=== PATIENT | female | born 1970 | race Caucasian/White ===

== ENCOUNTER 2016-08-08 21:53 | Emergency (ER) | payer BC ==
[2016-08-08 22:29] VITALS: BP 137/95; PULSE 101; RESP 18; TEMP 99.1
--- NOTE | 2016-08-08 22:39 | ED ---
Skin/Abscess/FB HPI - General Chief complaint: Skin/Abscess/Foreign Body Stated complaint: abscess/back of thigh Time Seen by Provider: 08/08/16 22:37 Source: patient, RN notes reviewed, old records reviewed Mode of arrival: ambulatory Limitations: no limitations - History of Present Illness Initial comments: Patient is a 46-year-old female with a chief complaint of an abscess over the back of her left thigh. Patient reports that she noticed it started on . Patient states that he she's had multiple abscesses within the past few months and they usually treated with Keflex. She denies a history of resistant antibiotics. Patient reports that she's had some nausea today and she 's felt feverish. She denies any other symptoms at this time. Patient reports that she is unable to remain hydrated. She denies any vomiting. Patient reports that over the past day she's been doing warm soaks. Patient denies any significant past medical history including diabetes. - Related Data Home Medications Medication Instructions Recorded Confirmed Escitalopram [Lexapro] 20 mg PO DAILY 11/25/14 08/08/16 Levothyroxine Sodium [Synthroid] 137 mcg PO DAILY 11/25/14 08/08/16 Topiramate [Topamax] 100 mg PO DAILY 11/25/14 08/08/16 ARIPiprazole [Abilify] 2 mg PO DAILY 08/08/16 08/08/16 Previous Rx's Medication Instructions Recorded HYDROcodone/APAP 10-325MG [[place] 1 tab PO Q6H PRN #20 tab 08/08/16 10-325] Sulfamethox-Tmp 800-160Mg [Bactrim 1 tab PO Q12HR #20 tab 08/08/16 DS 800-160 mg] Allergies Allergy/AdvReac Type Severity Reaction Status Date / Time erythromycin base Allergy Nausea & Verified 08/08/16 22:29 Vomiting Review of Systems ROS Statement: Those systems with pertinent positive or pertinent negative responses have been documented in the HPI. ROS Other: All systems not noted in ROS Statement are negative. Past Medical History Past Medical History: Neurologic Disorder, Thyroid Disorder Additional Past Medical History / Comment(s): Multiple Sclerosis History of Any Multi-Drug Resistant Organisms: None Reported Additional Past Surgical History / Comment(s): D and C Past Psychological History: Depression Smoking Status: Never smoker Past Alcohol Use History: Occasional Past Drug Use History: None Reported General Exam - General Exam Comments Initial Comments: Patient is a well-appearing 46-year-old female. She is on appear to be in any acute distress. Limitations: no limitations General appearance: alert, in no apparent distress Head exam: Present: atraumatic, normocephalic, normal inspection Eye exam: Present: normal appearance, PERRL, EOMI. Absent: scleral icterus, conjunctival injection, periorbital swelling ENT exam: Present: normal exam, mucous membranes moist Neck exam: Present: normal inspection. Absent: tenderness, meningismus, lymphadenopathy Respiratory exam: Present: normal lung sounds bilaterally. Absent: respiratory distress, wheezes, rales, rhonchi, stridor Cardiovascular Exam: Present: regular rate, normal rhythm, normal heart sounds. Absent: systolic murmur, diastolic murmur, rubs, gallop, clicks GI/Abdominal exam: Present: soft, normal bowel sounds. Absent: distended, tenderness, guarding, rebound, rigid Extremities exam: Present: normal inspection, full ROM, normal capillary refill. Absent: tenderness, pedal edema, joint swelling, calf tenderness Back exam: Present: normal inspection Neurological exam: Present: alert, oriented X3, CN II-XII intact Psychiatric exam: Present: normal affect, normal mood Skin exam: Present: warm, dry, intact, normal color, other (10 cm x 15 cm area of erythema on the skin. There is a evidence of an abscess that is deep and fluctuant measuring approximately 5 cm x 4 cm.). Absent: rash Course Vital Signs 08/08/16 22:25 Temperature 99.1 F Pulse Rate 101 H Respiratory 18 Rate Blood Pressure 137/95 O2 Sat by Pulse 97 Oximetry Procedures - Incision & Drainage Site: lower extremity (left posterior upper thigh) Size (cm): 5 Anesthetic Used: benzocaine 0.25% Amount (mLs): 10 I&D Cleaning Method: Iodine Sterile Field Used?: Yes Scalpel Used: #11 I&D Drainage Obtained: Pus, Blood Packing: Iodoform Culture Obtained?: Yes Patient Tolerated Procedure: well Medical Decision Making - Medical Decision Making Patient is a 46-year-old female with foreign days of an abscess over her left thigh. She reports that she's felt somewhat chilled today. She denies any other associated symptoms. Patient reports that she's had a history of abscess that are usually treated with Keflex. Patient tolerated the I&D well and a culture was obtained. Patient was given 1 g of Rocephin IM. Patient also will be discharged at this prescription for Bactrim and pain medications. Patient was packed with iodoform. Patient was discharged. Patient did request a work note and I went to give the patient a work note upon seeing the patient in the waiting room she was shivering and stated she felt chilled. At that point I decided to bring the patient back if she had some shaking chills. And Dr. Small come see the patient has a possible reaction to Rocephin. Patient at that point was given her Tylenol 3 for the fever and also 40 mg of Pepcid and 50 PO Benadryl. Patient does not have an IV access. Patient was given a warm blanket and instructed to take deep breaths. Patient will be monitored for the next 15-20 minutes to ensure that she started to feel better. Patient was reevaluated and given crackers and jensen idalia. Patient reports that she feels much better at this time. She states that she wants to go home. Patient was advised that she do should have her pick her up to drive her home. Patient did refuse that stated that she wanted to drive herself. Vitals obtained at that time blood pressure was 125/70, temperature was 99.2. Pulse ox is 99% on room air. Heart rate was 100. Patient left at this time. Disposition Clinical Impression: Abscess of left thigh Disposition: HOME SELF-CARE Condition: Good Instructions: Abscess Incision and Drainage (ED) Additional Instructions: Patient instructed to completely entire antibiotic prescription. Take pain medications as directed. Also follow-up with primary care physician or return to the if any worsening signs or symptoms occur. Patient advised to continue to do warm baths and remove packing in 48 hours. Prescriptions: HYDROcodone/APAP 10-325MG [[place] 10-325] 1 tab PO Q6H PRN #20 tab PRN Reason: Pain Sulfamethox-Tmp 800-160Mg [Bactrim DS 800-160 mg] 1 tab PO Q12HR #20 tab Referrals: Edna Olivia MD [Primary Care Provider] - 1-2 days Time of Disposition: 00:14
[2016-08-08] MEDS ORDERED: cefTRIAXone 1,000 MG VIAL (IM USE) IM STA (22:57)
[2016-08-08] MEDS ORDERED: SULFAMETH-TMP DS STARTER PACK 2 TAB BTL PO STA (22:57)
[2016-08-08] MEDS ORDERED: ACET/COD 300 MG/30 MG STARTER PACK 6 TAB BTL PO STA (23:12)
[2016-08-08] MEDS ORDERED: ACETAMINOPHEN TAB 500 MG TAB PO STA (23:29)
[2016-08-08] MEDS ORDERED: FAMOTIDINE 20 MG TAB PO STA (23:36)
[2016-08-08] MEDS ORDERED: diphenhydrAMINE 50 MG CAP PO STA (23:36)
== END 2016-08-09 00:10 | disposition home or self-care (01) ==
LOC: EC 21:53
DX: L02.416 Cutaneous abscess of left lower limb (principal); R50.9 Fever, unspecified; E07.9 Disorder of thyroid, unspecified; G35 Multiple sclerosis; F32.9 Major depressive disorder, single episode, unspecified; Z88.1 Allergy status to other antibiotic agents; Z79.899 Other long term (current) drug therapy
CPT/HCPCS: 87070; 87205; 99283; 96372; 10061; J0696; 87077; 87186

== ENCOUNTER → 2017-10-22 | Outpatient (CLI) | payer OTHER ==
--- NOTE | 2017-10-22 08:52 | MR ---
MRI CERVICAL AND THORACIC SPINES: CLINICAL HISTORY: Neck and back pain. TECHNIQUE: Multiplanar, multisequence imaging of the cervical spine is performed without and with IV contrast, cc of gadolinium was given intravenously. COMPARISON: Previous MRI of the thoracic spine dated 12/05/2014. FINDINGS: CERVICAL SPINE: Prevertebral soft tissues are normal. There is a mild reversal of the cervical lordosis. There is a normal craniocervical junction. Cord signal is normal. C2-3 and C3-4, no definite abnormality is detected. At C4-5 the intervertebral foramina are maintained. There is a mild, diffuse disc displacement. The f acet and uncovertebral joints are unremarkable. At C5-6, there is disc space loss. There is mild, bilateral intervertebral foraminal narrowing. There is a diffuse disc displacement causing cord contact without compression. The facet and uncovertebral joints are unremarkable. There is a moderate amount of pulsation artifact from T4 through T8. At C6-7 and C7-T1, no definite abnormality is seen. IMPRESSION: 1. NO DEFINITE SPINAL CORD LESION. 2. MILD DEGENERATIVE DISC DISEASE, C4-5 AND C5-6. 3. MILD, BILATERAL INTERVERTEBRAL FORAMINAL NARROWING, C5-6. THORACIC SPINE: Vertebral body height and alignment are maintained. No fractures are seen. Questiona ble lesion noted previously at the level of T3 is not visualized on today's examination. Cord signal is normal on today's examination. There is a small central and right paracentral disc protrusion at T7-8 level. This is very similar to the previous study. There is no other significant compressive discopathy. Intervertebral foramina ar e maintained. There is mild facet arthropathy at T12-L1. IMPRESSION: 1. NO DEFINITE MS PLAQUES IDENTIFIED. 2. STABLE CENTRAL AND RIGHT PARACENTRAL DISC PROTRUSION, T7-8 DEFORMING THE THECAL SAC WITHOUT CORD C ONTACT. 3. MILD FACET ARTHROPATHY, T12-L1.
== END | disposition home or self-care (01) ==
LOC: RADMRIMAIN 07:12
PROVIDERS: ATTEND Family Medicine
DX: M99.71 Connective tissue and disc stenosis of intervertebral foramina of cervical region (principal); M51.24 Other intervertebral disc displacement, thoracic region; M50.321 Other cervical disc degeneration at C4-C5 level; M46.96 Unspecified inflammatory spondylopathy, lumbar region
CPT/HCPCS: 72141; 72146

== ENCOUNTER 2019-12-17 05:46 | Emergency (ER) | payer BC ==
[2019-12-17] MEDS ORDERED: ONDANSETRON ODT 8 MG TAB.RAPDIS PO STA (06:11)
[2019-12-17] MEDS ORDERED: KETOROLAC 30 MG/ML 1 ML VIAL IVP STA (06:11)
[2019-12-17] MEDS ORDERED: MORPHINE SULFATE 4 MG/ML SYRINGE IV STA (06:11)
[2019-12-17] MEDS ORDERED: SODIUM CHLORIDE 0.9% 1,000 ML IV STA ×2 (06:11)
--- NOTE | 2019-12-17 06:16 | ED ---
Abdominal Pain HPI - General Chief Complaint: Abdominal Pain Stated Complaint: Abd pain Time Seen by Provider: 12/17/19 06:05 Source: patient, RN notes reviewed, old records reviewed Mode of arrival: ambulatory Limitations: no limitations - History of Present Illness Initial Comments: Patient is a 49-year-old female presents emergency with onset of left lower quadrant abdominal pain sharp and stabbing in nature starting at 4:30 this morning. She states that she's her had a kidney stone the past. She does report history of colonoscopy. Ears ago. Patient states she did have some precancerous polyps. Patient denies any fevers or chills lately. She reports she's had normal bowel movements. - Related Data Home Medications Medication Instructions Recorded Confirmed Escitalopram [Lexapro] 20 mg PO DAILY 11/25/14 07/26/18 Previous Rx's Medication Instructions Recorded HYDROcodone/APAP 5-325MG [[place] 1 tab PO Q6HR PRN 3 Days #12 tab 12/17/19 5-325] Ketorolac [Toradol] 10 mg PO Q6HR #20 tab 12/17/19 Ondansetron [Zofran ODT] 4 mg PO Q8HR #12 tab 12/17/19 Tamsulosin [Flomax] 0.4 mg PO DAILY #7 cap 12/17/19 Allergies Allergy/AdvReac Type Severity Reaction Status Date / Time ceftriaxone [From Rocephin] Allergy RIGORS Verified 12/17/19 05:51 erythromycin base Allergy Nausea & Verified 12/17/19 05:51 Vomiting Review of Systems ROS Statement: Those systems with pertinent positive or pertinent negative responses have been documented in the HPI. ROS Other: All systems not noted in ROS Statement are negative. Past Medical History Past Medical History: Neurologic Disorder, Thyroid Disorder Additional Past Medical History / Comment(s): Multiple Sclerosis. NO MEDS FOR THYROID History of Any Multi-Drug Resistant Organisms: MRSA Date of last positivie culture/infection: 08/08/16 MDRO Source:: Left Thigh Additional Past Surgical History / Comment(s): D and C Past Anesthesia/Blood Transfusion Reactions: Motion Sickness Past Psychological History: Depression Smoking Status: Never smoker Past Alcohol Use History: Occasional Past Drug Use History: None Reported - Past Family History Mother Family Medical History: Cancer General Exam - General Exam Comments Initial Comments: 49-year-old female. Patient appears in moderate discomfort. Limitations: no limitations General appearance: alert, in no apparent distress Head exam: Present: atraumatic, normocephalic, normal inspection Eye exam: Present: normal appearance, PERRL, EOMI. Absent: scleral icterus, conjunctival injection, periorbital swelling ENT exam: Present: normal exam, mucous membranes moist Neck exam: Present: normal inspection. Absent: tenderness, meningismus, lymphadenopathy Respiratory exam: Present: normal lung sounds bilaterally. Absent: respiratory distress, wheezes, rales, rhonchi, stridor Cardiovascular Exam: Present: regular rate, normal rhythm, normal heart sounds. Absent: systolic murmur, diastolic murmur, rubs, gallop, clicks GI/Abdominal exam: Present: soft, normal bowel sounds. Absent: distended, tenderness, guarding, rebound, rigid Extremities exam: Present: normal inspection, full ROM, normal capillary refill. Absent: tenderness, pedal edema, joint swelling, calf tenderness Back exam: Present: normal inspection Neurological exam: Present: alert, oriented X3, CN II-XII intact Course Vital Signs 12/17/19 12/17/19 05:48 07:21 Temperature 97.8 F 97.0 F L Pulse Rate 75 86 Respiratory 18 16 Rate Blood Pressure 139/83 128/79 O2 Sat by Pulse 100 95 Oximetry Medical Decision Making - Medical Decision Making Patient is a 49-year-old female who presents today with onset of left-sided lower abdominal and flank pain starting at 4:30 this morning. No history of kidney stones in the past. Urinalysis is positive for blood. KUB should not instructed bowel gas pattern. CBC and CMP are unremarkable. Patient had computed tomography scan which is evidence of a 5 mm proximal U ureter stone with hydronephrosis. Patient was advised that this should pass without surgical intervention based on the size and Patient was given pain medicine emergency department and started on Flomax. I advised falling up with urology. All questions answered. - Lab Data Result diagrams: 12/17/19 06:43 12/17/19 07:05 Lab Results 12/17/19 12/17/19 12/17/19 Range/Units 06:00 06:43 07:05 WBC 6.1 (3.8-10.6) k/uL RBC 5.12 (3.80-5.40) m/uL Hgb 15.6 (11.4-16.0) gm/dL Hct 46.3 H (34.0-46.0) % MCV 90.4 (80.0-100.0) fL MCH 30.5 (25.0-35.0) pg MCHC 33.7 (31.0-37.0) g/dL RDW 13.7 (11.5-15.5) % Plt Count 176 (150-450) k/uL Neutrophils % 64 % Lymphocytes % 25 % Monocytes % 5 % Eosinophils % 3 % Basophils % 0 % Neutrophils # 3.9 (1.3-7.7) k/uL Lymphocytes # 1.5 (1.0-4.8) k/uL Monocytes # 0.3 (0-1.0) k/uL Eosinophils # 0.2 (0-0.7) k/uL Basophils # 0.0 (0-0.2) k/uL Sodium 139 (137-145) mmol/L Potassium 5.2 H (3.5-5.1) mmol/L Chloride 110 H (98-107) mmol/L Carbon Dioxide 24 (22-30) mmol/L Anion Gap 5 mmol/L BUN 19 H (7-17) mg/dL Creatinine 0.57 (0.52-1.04) mg/dL Est GFR (CKD-EPI)AfAm >90 (>60 ml/min/1.73 sqM) Est GFR (CKD-EPI)NonAf >90 (>60 ml/min/1.73 sqM) Glucose 99 (74-99) mg/dL Calcium 8.6 (8.4-10.2) mg/dL Total Bilirubin 0.8 (0.2-1.3) mg/dL AST 30 (14-36) U/L ALT 21 (4-34) U/L Alkaline Phosphatase 71 (38-126) U/L Total Protein 7.0 (6.3-8.2) g/dL Albumin 3.9 (3.5-5.0) g/dL Amylase 50 (30-110) U/L Lipase 127 (23-300) U/L Urine Color Dark Yellow Urine Appearance Cloudy H (Clear) Urine pH 5.5 (5.0-8.0) Ur Specific [place] 1.027 (1.001-1.035) Urine Protein 1+ H (Negative) Urine Glucose (UA) Negative (Negative) Urine Ketones Trace H (Negative) Urine Blood Large H (Negative) Urine Nitrite Negative (Negative) Urine Bilirubin Negative (Negative) Urine Urobilinogen <2.0 (<2.0) mg/dL Ur Leukocyte Esterase Large (Negative) Urine RBC >182 H (0-5) /hpf Urine WBC 40 H (0-5) /hpf Urine WBC Clumps Few H (None) /hpf Ur Squamous Epith Cells 19 H (0-4) /hpf Urine Bacteria Rare H (None) /hpf Hyaline Casts 6 H (0-2) /lpf Urine Mucus Many H (None) /hpf - Radiology Data Radiology results: report reviewed Mild left hydroureteronephrosis secondary to proximal left ureteral obstructing 5 mm calculus. Additional nonobstructing left renal colliculi. Age- indeterminate compression 39 of L1 correlate with point tenderness no priors are available. Disposition Clinical Impression: Right ureteral calculus Disposition: HOME SELF-CARE Condition: Good Instructions (If sedation given, give patient instructions): Ureteral Stones (ED) Additional Instructions: Please use medication as discussed. Please follow up with family doctor if symptoms have not improved over the next two days. Please return to the emergency room if your symptoms increase or worsen or for any other concerns. Prescriptions: Tamsulosin [Flomax] 0.4 mg PO DAILY #7 cap HYDROcodone/APAP 5-325MG [[place] 5-325] 1 tab PO Q6HR PRN 3 Days #12 tab PRN Reason: Pain Ketorolac [Toradol] 10 mg PO Q6HR #20 tab Ondansetron [Zofran ODT] 4 mg PO Q8HR #12 tab Is patient prescribed a controlled substance at d/c from ED?: Yes If prescribed controlled substance>3 days was MAPS reviewed?: Prescribed <3 Days If opioid is for acute pain is fill amount 7 days or less?: Yes If Rx opioid, was Start Talking consent form obtained?: Yes Referrals: Edna Olivia MD [Primary Care Provider] - 1-2 days Naveen Redman MD [STAFF PHYSICIAN] - 1-2 days Time of Disposition: 07:51
[2019-12-17 06:24] LABS: Bacteria,Urine Rare /hpf; Hyaline Casts,Urine 6 /lpf (0-2); Mucus,Urine Many /hpf; RBC,Urine >182 /hpf (0-5); Squamous Epithelial Cell,Urine 19 /hpf (0-4); WBC,Urine 40 /hpf (0-5)
--- NOTE | 2019-12-17 06:24 | XR ---
EXAM: XR Abdomen, 1 View CLINICAL HISTORY: Abdominal pain TECHNIQUE: 2 Frontal supine view of the abdomen/pelvis. COMPARISON: No relevant prior studies available. FINDINGS: Gastrointestinal tract: Unremarkable. No dilation. Bones/joints: Unremarkable. The lung bases are clear. IMPRESSION: Normal abdominal x-ray.
[2019-12-17 06:28] LABS: Appearance,Urine Cloudy (Clear); Color,Urine Dark Yellow
[2019-12-17 06:29] LABS: Bilirubin,Urine Negative (Negative); Blood,Urine Large (Negative); Glucose,Urine (UA) Negative (Negative); Ketones,Urine Trace (Negative); Leukocyte Esterase,Urine Large (Negative); Nitrite,Urine Negative (Negative); PH, Urine 5.5 (5.0-8.0); Protein,Urine 1+ (Negative); Specific Gravity,Urine 1.027 (1.001-1.035); Urobilinogen,Urine <2.0 mg/dL (<2.0)
[2019-12-17 06:49] LABS: Basophils % (A) 0 %; Eosinophils # (A) 0.2 k/uL (0-0.7); Eosinophils % (A) 3 %; HCT 46.3 % (34.0-46.0); HGB 15.6 gm/dL (11.4-16.0); Lymphocytes # (A) 1.5 k/uL (1.0-4.8); Lymphocytes % (A) 25 %; MCH 30.5 pg (25.0-35.0); MCHC 33.7 g/dL (31.0-37.0); MCV 90.4 fL (80.0-100.0); Mean Platelet Volume 7.8; Monocytes # (A) 0.3 k/uL (0-1.0); Monocytes % (A) 5 %; Neutrophils # (A) 3.9 k/uL (1.3-7.7); Neutrophils % (A) 64 %; Platelet Count 176 k/uL (150-450); RBC 5.12 m/uL (3.80-5.40); RDW 13.7 % (11.5-15.5); WBC 6.1 k/uL (3.8-10.6)
[2019-12-17 07:24] LABS: ALT 21 U/L (4-34); African American GFR (CKD) >90 (>60 ml/min/1.73 sqM); Amylase 50 U/L (30-110); Anion Gap 5 mmol/L; Blood Urea Nitrogen 19 mg/dL (7-17); Calcium 8.6 mg/dL (8.4-10.2); Carbon Dioxide 24 mmol/L (22-30); Chloride 110 mmol/L (98-107); Glucose 99 mg/dL (74-99); Non-African American GFR(CKD) >90 (>60 ml/min/1.73 sqM); Sodium 139 mmol/L (137-145); Total Bilirubin 0.8 mg/dL (0.2-1.3)
--- NOTE | 2019-12-17 07:27 | CT ---
EXAMINATION TYPE: CT abdomen pelvis wo con DATE OF EXAM: 12/17/2019 COMPARISON: None HISTORY: Abdominal pain CT DLP: 881.3 mGycm Automated exposure control for dose reduction was used. TECHNIQUE: Helical acquisition of images was performed from the lung bases through the pelvis. FINDINGS: Lack of intravenous and oral contrast limit evaluation of both the hollow and solid viscera . LUNG BASES: No significant abnormality is appreciated. LIVER/GB: No significant abnormality is appreciated. No radiopaque calculi in the gallbladder. PANCREAS: No ductal dilatation. SPLEEN: No splenomegaly. ADRENALS: No significant abnormality is seen. KIDNEYS: Mild left hydroureteronephrosis secondary to a 5 mm obstructing proximal left ureteral calcu thien. There are additionally within the left lower pole the kidney two 2 mm punctate calculi that are nonobstructing. No hydronephrosis or nephrolithiasis on the right. ADENOPATHY: No greater than 1 cm short axis lymph nodes in the abdomen or pelvis. OSSEOUS STRUCTURES: Mild compression deformity of L1 with Schmorl's node of the superior endplate. V ertebral body height loss is approximately 10%. This is age-indeterminate without priors for comparis on. BOWEL: Numerous sigmoid diverticula are seen without pericolonic fat stranding. No dilated large or small bowel seen. OTHER: Small fat filled periumbilical hernia superimposed upon diastases recti. IMPRESSION: 1. MILD LEFT HYDROURETERONEPHROSIS SECONDARY TO A PROXIMAL LEFT URETERAL OBSTRUCTING 5 MM CALCULUS. A DDITIONAL NONOBSTRUCTING LEFT RENAL CALCULI. 2. MILD AGE INDETERMINANT COMPRESSION DEFORMITY OF L1. CORRELATE FOR POINT TENDERNESS IS NO PRIORS AR E AVAILABLE FOR COMPARISON.
[2019-12-17 07:30] LABS: Potassium 5.2 mmol/L (3.5-5.1)
[2019-12-17 07:31] LABS: AST 30 U/L (14-36); Albumin 3.9 g/dL (3.5-5.0); Alkaline Phosphatase 71 U/L (38-126)
[2019-12-17 07:33] VITALS: TEMP 97
[2019-12-17] MEDS ORDERED: TAMSULOSIN 0.4 MG CAP.ER.24H PO STA (07:46)
[2019-12-17] MEDS ORDERED: HYDROmorphone 1 MG/ML 1 ML SYRINGE IVP STA (07:46)
[2019-12-17] MEDS ORDERED: METOCLOPRAMIDE 5 MG/ML 2 ML VIAL IVP STA (08:36)
[2019-12-17 09:22] VITALS: BP 168/87; PULSE 100; RESP 18
== END 2019-12-17 09:10 | disposition home or self-care (01) ==
LOC: EC 05:46
DX: N13.2 Hydronephrosis with renal and ureteral calculous obstruction (principal); F32.9 Major depressive disorder, single episode, unspecified; Z79.899 Other long term (current) drug therapy; Z88.1 Allergy status to other antibiotic agents; Z86.14 Personal history of Methicillin resistant Staphylococcus aureus infection
CPT/HCPCS: 36415; 74018; 74176; 80053; 81001; 82150; 83690; 85025; 87086; 96361; 96374; 96375; 99285